=== PATIENT | male | born 1965 | race African-American/Black ===

== ENCOUNTER 2017-01-05 00:01 | Emergency (ER) | payer MEDICAID ==
[~2017-01-05] VITALS: Ht 177.8 cm; Wt 96.4 kg
[2017-01-05] MEDS ORDERED: methylPREDNISolone SOD SUCC 125 MG/2 ML ONE (00:44)
[2017-01-05] MEDS: methylPREDNISolone SOD SUCC 125 MG/2 ML IVP ONE ×2 (00:59→01:00)
[2017-01-05] MEDS: SODIUM CHLORIDE 0.9% 1,000ML IVBOLUS ONE ×2 (00:59→01:00)
[2017-01-05 01:04] LABS: HEMOGLOBIN 14.1 g/dL (13.7-18.0)
[2017-01-05 01:13] LABS: BLOOD UREA NITROGEN 13 mg/dL (7-18)
[2017-01-05 01:20] LABS: IS PT STATUS REG ER OR PRE ER? YES
[2017-01-05 01:47] LABS: DAU SCREEN DISCLAIMER
[2017-01-05 02:34] VITALS: BP 161/98
== END 2017-01-05 02:37 | disposition home or self-care (01) ==
LOC: ED 00:50
DX: L03.113 Cellulitis of right upper limb (principal); L03.114 Cellulitis of left upper limb; R05 Cough; I10 Essential (primary) hypertension; F15.10 Other stimulant abuse, uncomplicated; F15.129 Other stimulant abuse with intoxication, unspecified; E11.9 Type 2 diabetes mellitus without complications
CPT/HCPCS: 36415; 71010; 80048; 80307; 81003; 82040; 84484; 85025; 93005; 94640; 99285; J7512; J2930; J7030

== ENCOUNTER 2017-03-04 03:41 | Inpatient (IN) | payer MEDICAID ==
[~2017-03-04] VITALS: Ht 177.8 cm; Wt 96.7 kg
[2017-03-04] MEDS ORDERED: AMPICILLIN/SULBACTAM 3 GM in SODIUM CHLORIDE 0.9% 100 ML IV ONE (05:00)
[2017-03-04 05:02] LABS: BLOOD UREA NITROGEN 11 mg/dL (7-18)
[2017-03-04 05:07] LABS: ASPARTATE AMINO TRANSFERASE 25 U/L (15-37)
[2017-03-04] MEDS ORDERED: LIDOCAINE 1%, 20ML ONE (05:20)
[2017-03-04] MEDS ORDERED: KETOROLAC 30 MG/1 ML IVPush ONE (05:30)
[2017-03-04] MEDS ORDERED: SODIUM CHLORIDE 0.9% 1,000ML IVBOLUS ONE (05:30)
[2017-03-04] MEDS ORDERED: KETOROLAC 30 MG/1 ML ONE (06:45)
[2017-03-04 07:52] VITALS: BP 155/99
[2017-03-04] MEDS ORDERED: POLYETHYLENE GLYCOL 17 GM PACKET PO PRN (09:30)
[2017-03-04] MEDS ORDERED: VANCOMYCIN PER PHARMACY MC PRN (09:30)
[2017-03-04] MEDS ORDERED: ENOXAPARIN 40 MG/0.4 ML SQ SCH (09:30)
[2017-03-04] MEDS ORDERED: DOCUSATE 100 MG CAPSULE PO PRN (09:30)
[2017-03-04] MEDS ORDERED: BISACODYL 10 MG SUPP PR PRN (09:30)
[2017-03-04] MEDS ORDERED: VANCOMYCIN 1,900 MG in SODIUM CHLORIDE 0.9% 250 ML IV SCH (10:00)
[2017-03-04] MEDS ORDERED: PHARMACOKINETIC MONITORING MC PRN (10:00)
[2017-03-04] MEDS: SODIUM CHLORIDE 0.9% 1,000 ML IV SCH ×2 (10:34→21:54)
[2017-03-04] MEDS: AMPICILLIN/SULBACTAM 3 GM in SODIUM CHLORIDE 0.9% 100 ML IV SCH ×2 (10:34→17:36)
[2017-03-04] MEDS ORDERED: LORazepam 2 MG/ML, 1ML IVPush ONE (12:30)
[2017-03-04 14:26] VITALS: BP 155/99
[2017-03-04 14:46] VITALS: BP 177/107
[2017-03-04] MEDS ORDERED: LABETALOL 5MG/ML, 20ML IVPush PRN (15:00)
[2017-03-04 15:42] VITALS: BP 141/78
[2017-03-04 19:40] VITALS: BP 133/73
[2017-03-05 00:49] VITALS: BP 137/74
[2017-03-05] MEDS: AMPICILLIN/SULBACTAM 3 GM in SODIUM CHLORIDE 0.9% 100 ML IV SCH (02:02)
== END 2017-03-05 03:50 | disposition left against medical advice (07) | DRG 872 ==
LOC: ED 05:15 → EDIP 06:11 → 4EST 07:35
PROVIDERS: ADMIT Hospitalist; ATTEND Hospitalist
PROC: 0Y9H3ZZ Drainage of Right Lower Leg, Percutaneous Approach (ICD-10-PCS; principal; 2017-03-04)
DX: A41.9 Sepsis, unspecified organism (principal); L03.115 Cellulitis of right lower limb; L02.415 Cutaneous abscess of right lower limb; E11.9 Type 2 diabetes mellitus without complications; E78.5 Hyperlipidemia, unspecified; J45.909 Unspecified asthma, uncomplicated; I10 Essential (primary) hypertension; Z66 Do not resuscitate; F17.210 Nicotine dependence, cigarettes, uncomplicated; Z53.21 Procedure and treatment not carried out due to patient leaving prior to being seen by health care provider; F11.10 Opioid abuse, uncomplicated; F15.10 Other stimulant abuse, uncomplicated; Z91.14 Patient's other noncompliance with medication regimen; Z80.9 Family history of malignant neoplasm, unspecified
CPT/HCPCS: 36415; 80053; 83605; 84145; 85025; 85610; 85730; 87040; 87070; 87075; 87077; 87186; 87205; 96374; 96375; J0295; J1650; J1885; J3370; J2060; J7030; J7050

== ENCOUNTER 2017-09-09 20:21 | Emergency (ER) | payer SELFPAY ==
[~2017-09-09] VITALS: Ht 177.8 cm; Wt 92.4 kg
[2017-09-09 20:25] VITALS: BP 147/91
[2017-09-09] MEDS ORDERED: PROPARACAINE OPHTH 0.5%, 15ML EACHEYE ONE (21:00)
[2017-09-09] MEDS ORDERED: FLUORESCEIN OPHTHALMIC 1 MG STRIP ONE (21:21)
[2017-09-09] MEDS ORDERED: PROPARACAINE OPHTH 0.5%, 15ML ONE (21:21)
== END 2017-09-09 22:26 | disposition home or self-care (01) ==
LOC: ED 22:15
DX: H10.023 Other mucopurulent conjunctivitis, bilateral (principal); F15.10 Other stimulant abuse, uncomplicated; I10 Essential (primary) hypertension; E11.9 Type 2 diabetes mellitus without complications
CPT/HCPCS: 99283

== ENCOUNTER 2018-02-12 13:11 | Emergency (ER) | payer MEDICAID ==
[~2018-02-12] VITALS: Ht 177.8 cm; Wt 87.8 kg
[~2018-02-12 13:11] MED LIST: LISI30TA4 PO
[2018-02-12 13:13] VITALS: BP 175/96
[2018-02-12] MEDS ORDERED: FLUORESCEIN OPHTHALMIC 1 MG STRIP EACHEYE ONE (14:00)
[2018-02-12] MEDS ORDERED: PROPARACAINE OPHTH 0.5%, 15ML EACHEYE ONE (14:00)
[2018-02-12] MEDS ORDERED: PROPARACAINE OPHTH 0.5%, 15ML ONE (14:10)
[2018-02-12] MEDS ORDERED: FLUORESCEIN OPHTHALMIC 1 MG STRIP ONE (14:12)
[2018-02-12] MEDS ORDERED: ERYTHROMYCIN OPHTH 0.5%, 1GM EACHEYE ONE (14:30)
== END 2018-02-12 15:26 | disposition home or self-care (01) ==
LOC: ED 15:20
DX: H10.023 Other mucopurulent conjunctivitis, bilateral (principal); H10.11 Acute atopic conjunctivitis, right eye; E11.9 Type 2 diabetes mellitus without complications; I10 Essential (primary) hypertension
CPT/HCPCS: 99283

== ENCOUNTER 2018-04-30 03:38 | Emergency (ER) | payer SELFPAY ==
[~2018-04-30] VITALS: Ht 177.8 cm; Wt 89.0 kg
[2018-04-30] MEDS ORDERED: PROPARACAINE OPHTH 0.5%, 15ML ONE ×2 (04:54→04:56)
[2018-04-30] MEDS ORDERED: PROPARACAINE OPHTH 0.5%, 15ML EACHEYE ONE (05:00)
[2018-04-30 06:01] LABS: BASOPHILS # (AUTO) 0.01 x10^3/uL (0-0.1); BASOPHILS % (AUTO) 0 % (0-1); EOSINOPHILS # (AUTO) 0.18 x10^3/uL (0-0.4); EOSINOPHILS % (AUTO) 3 % (1-7); LYMPHOCYTES # (AUTO) 1.18 x10^3/uL (1-3.4); LYMPHOCYTES % (AUTO) 17 % (22-44); MD NO; MEAN CORPUSCULAR HEMOGLOBIN 31.5 pg (27.5-34.5); MEAN CORPUSCULAR HGB CONC 33.5 g/dL (33.2-36.2); MEAN CORPUSCULAR VOLUME 93.8 fL (81-97); MEAN PLATELET VOLUME 12.3 fL (7.4-10.4); MONOCYTES # (AUTO) 0.52 x10^3/uL (0.2-0.8); MONOCYTES % (AUTO) 7 % (2-9); NEUTROPHILS # (AUTO) 5.04 x10^3/uL (1.8-6.8); NEUTROPHILS % (AUTO) 73 % (42-75); PLATELET COUNT 124 x10^3/uL (130-400); RED BLOOD COUNT 4.41 x10^6/uL (4.38-5.82); RED CELL DISTRIBUTION WIDTH 13.7 % (9.4-14.8)
[2018-04-30 06:14] LABS: CALCIUM 8.6 mg/dL (8.5-10.1)
[2018-04-30 06:22] LABS: CHLORIDE 107 mmol/L (98-107)
[2018-04-30 06:23] LABS: ALANINE AMINOTRANSFERASE 33 U/L (12-78); ALBUMIN 3.3 g/dL (3.4-5.0); ALKALINE PHOSPHATASE 80 U/L (45-117); ANION GAP 8 mmol/L (5-15); BILIRUBIN,TOTAL 0.4 mg/dL (0.2-1.0); CREATININE 1.08 mg/dL (0.7-1.3); TOTAL PROTEIN 8.3 g/dL (6.4-8.2)
[2018-04-30] MEDS ORDERED: ACETAMINOPHEN 500 MG TABLET ONE (09:23)
[2018-04-30] MEDS ORDERED: ACETAMINOPHEN 500 MG TABLET PO ONE (09:30)
[2018-04-30] MEDS ORDERED: LISINOPRIL 20 MG TABLET ONE (12:57)
[2018-04-30] MEDS ORDERED: ACYCLOVIR 200 MG CAPSULE PO ONE (13:00)
[2018-04-30] MEDS ORDERED: LISINOPRIL 20 MG TABLET PO ONE (13:00)
[2018-04-30] MEDS ORDERED: ACYCLOVIR 400 MG TABLET PO ONE (14:00)
[2018-04-30 14:01] VITALS: BP 179/141
== END 2018-04-30 14:02 | disposition home or self-care (01) ==
LOC: ED 10:24
DX: H57.13 Ocular pain, bilateral (principal); B00.52 Herpesviral keratitis; R60.1 Generalized edema; I10 Essential (primary) hypertension; E11.9 Type 2 diabetes mellitus without complications
CPT/HCPCS: 36415; 71045; 80053; 83880; 85025; 93005; 99285

== ENCOUNTER 2018-08-03 04:36 | Observation (INO) | payer MEDICAID ==
[~2018-08-03] VITALS: Ht 180.3 cm; Wt 95.0 kg
[2018-08-03] MEDS ORDERED: PROPARACAINE OPHTH 0.5%, 15ML EACHEYE ONE (05:30)
[2018-08-03] MEDS ORDERED: KETOROLAC 30 MG/1 ML IVPush ONE (05:30)
[2018-08-03] MEDS ORDERED: KETOROLAC 30 MG/1 ML ONE (05:39)
[2018-08-03 05:51] LABS: BASOPHILS # (AUTO) 0.07 x10^3/uL (0-0.1); BASOPHILS % (AUTO) 1 % (0-1); EOSINOPHILS # (AUTO) 0.09 x10^3/uL (0-0.4); EOSINOPHILS % (AUTO) 1 % (1-7); LYMPHOCYTES # (AUTO) 0.81 x10^3/uL (1-3.4); LYMPHOCYTES % (AUTO) 8 % (22-44); MD NO; MEAN CORPUSCULAR HEMOGLOBIN 32.1 pg (27.5-34.5); MEAN CORPUSCULAR HGB CONC 33.8 g/dL (33.2-36.2); MEAN CORPUSCULAR VOLUME 94.8 fL (81-97); MEAN PLATELET VOLUME 11.4 fL (7.4-10.4); MONOCYTES % (AUTO) 4 % (2-9); NEUTROPHILS # (AUTO) 8.91 x10^3/uL (1.8-6.8); NEUTROPHILS % (AUTO) 87 % (42-75); PLATELET COUNT 170 x10^3/uL (130-400); RED BLOOD COUNT 4.45 x10^6/uL (4.38-5.82); RED CELL DISTRIBUTION WIDTH 14.4 % (9.4-14.8)
[2018-08-03 06:00] LABS: ALBUMIN 3.8 g/dL (3.4-5.0); ANION GAP 9 mmol/L (5-15); CALCIUM 8.7 mg/dL (8.5-10.1); CHLORIDE 99 mmol/L (98-107); CREATININE 1.19 mg/dL (0.7-1.3)
[2018-08-03] MEDS ORDERED: KETOROLAC 30 MG/1 ML IM ONE (06:00)
[2018-08-03] MEDS ORDERED: hydrALAzine 20 MG/ML, 1ML IV ONE (09:00)
[2018-08-03] MEDS ORDERED: ASPIRIN 81 MG TABLET CHEW PO ONE (09:00)
[2018-08-03] MEDS ORDERED: ERYTHROMYCIN OPHTH 0.5%, 1GM EACHEYE ONE (09:00)
[2018-08-03] MEDS ORDERED: SODIUM CHLORIDE FLUSH 10ML SYR IVF ONE (09:00)
[2018-08-03] MEDS ORDERED: CYCL2DRO3 TP (09:16)
[2018-08-03] MEDS ORDERED: hydrALAzine 20 MG/ML, 1ML ONE (09:19)
[2018-08-03] MEDS ORDERED: ASPIRIN 81 MG TABLET CHEW ONE (09:19)
[2018-08-03] MEDS ORDERED: PRED5DRO20 EACHEYE (09:20)
[2018-08-03 10:17] VITALS: BP 149/74
[2018-08-03] MEDS: D5%-0.45% NACL 1,000 ML IV SCH ×2 (10:48→22:48)
[2018-08-03] MEDS ORDERED: LABETALOL 5MG/ML, 20ML IVPush PRN (11:00)
[2018-08-03] MEDS ORDERED: POLYETHYLENE GLYCOL 17 GM PACKET PO PRN (11:00)
[2018-08-03] MEDS: INSULIN LISPRO 100 UNITS/ML, PEN SQ-INSULIN SCH ×3 (11:00→19:34)
[2018-08-03] MEDS ORDERED: GLUCAGON 1 MG IM PRN (11:00)
[2018-08-03] MEDS: OMEPRAZOLE 20 MG CAPSULE.DR PO SCH (11:00)
[2018-08-03] MEDS ORDERED: DEXTROSE 50%, 50ML SYRINGE IVPush PRN (11:00)
[2018-08-03] MEDS ORDERED: ONDANSETRON ODT 4 MG PO PRN (11:00)
[2018-08-03] MEDS ORDERED: DEXTROSE 4 GM TAB.CHEW PO PRN (11:00)
[2018-08-03] MEDS ORDERED: ONDANSETRON 2MG/ML, 2ML IVPush PRN (11:00)
[2018-08-03] MEDS: methylPREDNISolone SOD SUCC 125 MG/2 ML IVPush SCH ×3 (11:27→23:17)
[2018-08-03] MEDS: predniSOLONE OPHTH SUSP 1%, 5ML OP SCH ×7 (11:27→23:17)
[2018-08-03] MEDS: ERYTHROMYCIN OPHTH 0.5%, 1GM OP SCH ×3 (12:23→21:07)
[2018-08-03] MEDS: CYCLOPENTOLATE OPHTH SOLN 1%, 15ML OP SCH ×3 (12:23→21:06)
[2018-08-03 12:48] LABS: AMPHETAMINE SCREEN, URINE Positive (Negative); BARBITURATE SCREEN, URINE Negative (Negative); BENZODIAZEPINE SCREEN, URINE Negative (Negative); CANNABINOID SCREEN, URINE Positive (Negative); COCAINE SCREEN, URINE Negative (Negative); METHADONE SCREEN, URINE Negative (Negative); OPIATE SCREEN, URINE Positive (Negative)
[2018-08-03 14:46] VITALS: BP 165/95
[2018-08-03 19:58] VITALS: BP 172/110
[2018-08-03] MEDS ORDERED: SODIUM CHLORIDE FLUSH 10ML SYR IVF SCH (21:00)
[2018-08-03] MEDS ORDERED: IBUPROFEN 600 MG TABLET ONE (21:48)
[2018-08-03] MEDS ORDERED: LORazepam 1MG TABLET ONE (21:48)
[2018-08-03] MEDS: IBUPROFEN 600 MG TABLET PO PRN (21:51)
[2018-08-03 21:54] VITALS: BP 174/107
[2018-08-03] MEDS ORDERED: LORazepam 1MG TABLET PO ONE (22:00)
[2018-08-03 22:49] VITALS: BP 154/100
[2018-08-04 00:40] VITALS: BP 154/95
[2018-08-04] MEDS: predniSOLONE OPHTH SUSP 1%, 5ML OP SCH ×3 (01:17→05:30)
[2018-08-04] MEDS: IBUPROFEN 600 MG TABLET PO PRN (04:33)
[2018-08-04] MEDS: ERYTHROMYCIN OPHTH 0.5%, 1GM OP SCH (05:30)
[2018-08-04] MEDS: OMEPRAZOLE 20 MG CAPSULE.DR PO SCH (05:30)
[2018-08-04] MEDS: CYCLOPENTOLATE OPHTH SOLN 1%, 15ML OP SCH (05:30)
[2018-08-04] MEDS: methylPREDNISolone SOD SUCC 125 MG/2 ML IVPush SCH (05:30)
[2018-08-04 06:35] LABS: BASOPHILS # (AUTO) 0.01 x10^3/uL (0-0.1); BASOPHILS % (AUTO) 0 % (0-1); EOSINOPHILS % (AUTO) 0 % (1-7); LYMPHOCYTES # (AUTO) 0.69 x10^3/uL (1-3.4); LYMPHOCYTES % (AUTO) 6 % (22-44); MD NO; MEAN CORPUSCULAR HEMOGLOBIN 31.9 pg (27.5-34.5); MEAN CORPUSCULAR VOLUME 93.9 fL (81-97); MEAN PLATELET VOLUME 11.2 fL (7.4-10.4); MONOCYTES # (AUTO) 0.25 x10^3/uL (0.2-0.8); MONOCYTES % (AUTO) 2 % (2-9); NEUTROPHILS # (AUTO) 11.27 x10^3/uL (1.8-6.8); NEUTROPHILS % (AUTO) 92 % (42-75); PLATELET COUNT 187 x10^3/uL (130-400); RED BLOOD COUNT 4.65 x10^6/uL (4.38-5.82); RED CELL DISTRIBUTION WIDTH 14.1 % (9.4-14.8)
[2018-08-04 06:47] LABS: ALANINE AMINOTRANSFERASE 27 U/L (12-78); ALBUMIN 3.4 g/dL (3.4-5.0); ANION GAP 11 mmol/L (5-15); CALCIUM 8.8 mg/dL (8.5-10.1); CHLORIDE 102 mmol/L (98-107); CREATININE 1.12 mg/dL (0.7-1.3)
[2018-08-04 06:58] LABS: ALKALINE PHOSPHATASE 92 U/L (45-117); BILIRUBIN,TOTAL 0.8 mg/dL (0.2-1.0); THYROID STIMULATING HORMONE 0.163 mIU/L (0.358-3.740); TOTAL PROTEIN 9.5 g/dL (6.4-8.2)
[2018-08-04] MEDS ORDERED: AMLODIPINE 5 MG TABLET PO SCH (09:00)
[2018-08-04] MEDS ORDERED: SENNA/DOCUSATE TABLET PO SCH (09:00)
== END 2018-08-04 07:07 | disposition left against medical advice (07) ==
LOC: ED 05:56 → INTOOBSV 09:24 → 4WST 09:24
PROVIDERS: ADMIT Family Medicine; ATTEND Family Medicine
DX: I10 Essential (primary) hypertension (principal); F12.10 Cannabis abuse, uncomplicated; F15.10 Other stimulant abuse, uncomplicated; E11.9 Type 2 diabetes mellitus without complications; E87.1 Hypo-osmolality and hyponatremia; D72.829 Elevated white blood cell count, unspecified; E78.5 Hyperlipidemia, unspecified; J45.909 Unspecified asthma, uncomplicated; F17.200 Nicotine dependence, unspecified, uncomplicated; Z91.19 Patient's noncompliance with other medical treatment and regimen; Z79.899 Other long term (current) drug therapy
CPT/HCPCS: 36415; 71045; 80048; 80053; 80307; 82040; 82962; 83036; 83735; 84100; 84439; 84443; 85025; 93005; 96372; 96374; 96375; 96376; 99291; G0378; J0360; J1815; J1885; J2930

== ENCOUNTER 2018-08-06 20:59 | Emergency (ER) | payer MEDICAID ==
[~2018-08-06] VITALS: Ht 177.8 cm; Wt 90.9 kg
[~2018-08-06 20:59] MED LIST changes: +CYCL2DRO3 TP; +PRED5DRO20 EACHEYE
[2018-08-06 21:06] VITALS: BP 181/106
[2018-08-06] MEDS ORDERED: TETRACAINE 0.5% EACHEYE ONE (22:00)
== END 2018-08-06 22:38 | disposition home or self-care (01) ==
LOC: ED 22:35
DX: H16.011 Central corneal ulcer, right eye (principal); H57.13 Ocular pain, bilateral; I10 Essential (primary) hypertension; F17.200 Nicotine dependence, unspecified, uncomplicated
CPT/HCPCS: 99283

== ENCOUNTER 2018-12-20 03:41 | Emergency (ER) | payer MEDICAID ==
[~2018-12-20] VITALS: Ht 177.8 cm; Wt 96.4 kg
--- NOTE | 2018-12-20 04:05 | NUR ---
FIRST CONTACT WITH PT. PT C/O MOUTH PAIN X 2 DAYS. PT DENIES ANY OTHER S/S AT THIS TIME. PT'S AOX4. RESPS EVEN AND UNLABORED. BP/SPO2 MONITORS IN PLACE. CALL LIGHT WITHIN REACH. PA AT BEDSIDE TO ASSESS AT THIS TIME.
[2018-12-20] MEDS ORDERED: FLUCONAZOLE 100 MG TABLET ONE (04:26)
[2018-12-20] MEDS ORDERED: FLUCONAZOLE 100 MG TABLET PO ONE (04:30)
--- NOTE | 2018-12-20 04:31 | NUR ---
PT MEDICATED PER EMAR. PT TOLERATED WELL. PT'S AOX4. RESPS EVEN AND UNLABORED.
[2018-12-20 05:02] LABS: ALANINE AMINOTRANSFERASE 34 U/L (12-78); ALBUMIN 3.4 g/dL (3.4-5.0); ANION GAP 5 mmol/L (5-15); CALCIUM 8.6 mg/dL (8.5-10.1); CHLORIDE 105 mmol/L (98-107); CREATININE 1.38 mg/dL (0.7-1.3)
[2018-12-20 05:05] LABS: ALKALINE PHOSPHATASE 84 U/L (45-117); BILIRUBIN,TOTAL 0.7 mg/dL (0.2-1.0); TOTAL PROTEIN 8.2 g/dL (6.4-8.2)
[2018-12-20 05:40] LABS: BASOPHILS # (AUTO) 0.02 x10^3/uL (0-0.1); BASOPHILS % (AUTO) 0 % (0-1); EOSINOPHILS # (AUTO) 0.18 x10^3/uL (0-0.4); EOSINOPHILS % (AUTO) 3 % (1-7); LYMPHOCYTES # (AUTO) 0.95 x10^3/uL (1-3.4); LYMPHOCYTES % (AUTO) 16 % (22-44); MD SCAN; MEAN CORPUSCULAR HEMOGLOBIN 30.4 pg (27.5-34.5); MEAN CORPUSCULAR HGB CONC 32.4 g/dL (33.2-36.2); MEAN CORPUSCULAR VOLUME 93.9 fL (81-97); MEAN PLATELET VOLUME 12.1 fL (7.4-10.4); MONOCYTES # (AUTO) 0.52 x10^3/uL (0.2-0.8); MONOCYTES % (AUTO) 9 % (2-9); NEUTROPHILS # (AUTO) 4.37 x10^3/uL (1.8-6.8); NEUTROPHILS % (AUTO) 72 % (42-75); PLATELET COUNT 157 x10^3/uL (130-400); RED BLOOD COUNT 4.24 x10^6/uL (4.38-5.82); RED CELL DISTRIBUTION WIDTH 14.3 % (9.4-14.8)
--- NOTE | 2018-12-20 05:48 | NUR ---
PT RESTING IN [facility]. PT'S AOX4. RESPS EVEN AND UNLABORED. BP/SPO2 MONITORS IN PLACE.
[2018-12-20] MEDS ORDERED: NYSTATIN 500,000 UNITS/5 ML UDC PO ONE (06:30)
[2018-12-20 06:47] VITALS: BP 152/94
--- NOTE | 2018-12-20 06:56 | NUR ---
PT MEDICATED PER EMAR. PT TOLERATED WELL. PT'S AOX4. RESPS EVEN AND UNLABORED.
--- NOTE | 2018-12-20 06:57 | NUR ---
RECEIVED REPORT FROM LUCILLE HUERTA, PLAN OF CARE DISCUSSED.
--- NOTE | 2018-12-20 06:57 | NUR ---
REPORT GIVEN TO VIVIAN HUERTA.
--- NOTE | 2018-12-20 07:10 | NUR ---
CARE FOR DC PROVIDED. PT LAYING ON GURNEY, NO ACUTE DISTRESS NOTED. NO IV TO DC. REVIEWED DC INSTRUCTIONS WITH PT. UNDERSTANDING VERBALIZED.
== END 2018-12-20 07:12 | disposition home or self-care (01) ==
LOC: ED 05:11
DX: B37.9 Candidiasis, unspecified (principal); F17.210 Nicotine dependence, cigarettes, uncomplicated; I10 Essential (primary) hypertension; E11.9 Type 2 diabetes mellitus without complications
CPT/HCPCS: 80053; 82962; 85025; 87806; 99283; G0475

== ENCOUNTER 2019-09-29 19:36 | Inpatient (IN) | payer MEDICAID ==
[~2019-09-29] VITALS: Ht 177.8 cm; Wt 96.6 kg
--- NOTE | 2019-09-29 20:02 | NUR ---
ZOLTAN JOHNSON AT BEDSIDE FOR EVAL. PT PRESENTS WITH SWELLING AND SKIN TIGHTNESS TO RIGHT ARM AND HAND. MULTIPLE BLISTERS ON RIGHT ARM. PT STATES HE "SHOT UP METH TODAY" IN RIGHT HAND.
[2019-09-29] MEDS ORDERED: ACETAMINOPHEN 325 MG TABLET ONE (20:27)
[2019-09-29] MEDS ORDERED: PIPERACILLIN/TAZO/PMX 3.375GM 50 ML ONE (20:27)
[2019-09-29] MEDS ORDERED: SODIUM CHLORIDE 0.9% 1,000ML IVBOLUS ONE (20:30)
[2019-09-29] MEDS ORDERED: PIPERACILLIN/TAZO/PMX 3.375GM 50 ML IV ONE (20:30)
[2019-09-29] MEDS ORDERED: VANCOMYCIN PER PHARMACY MC PRN ×2 (20:30→23:30)
[2019-09-29] MEDS ORDERED: VANCOMYCIN 2,000 MG in SODIUM CHLORIDE 0.9% 500 ML IV ONE (20:30)
[2019-09-29] MEDS ORDERED: SODIUM CHLORIDE FLUSH 10ML SYR IVF ONE (20:30)
[2019-09-29] MEDS ORDERED: ACETAMINOPHEN 325 MG TABLET PO ONE (20:30)
[2019-09-29 20:43] LABS: MEAN CORPUSCULAR HEMOGLOBIN 32.6 pg (27.5-34.5); MEAN CORPUSCULAR VOLUME 98.7 fL (81-97); PLATELET COUNT 168 x10^3/uL (130-400); RED BLOOD COUNT 3.86 x10^6/uL (4.38-5.82); RED CELL DISTRIBUTION WIDTH 14.6 % (9.4-14.8)
[2019-09-29 20:50] LABS: ALANINE AMINOTRANSFERASE 17 U/L (12-78); ALBUMIN 2.3 g/dL (3.4-5.0); ANION GAP 5 mmol/L (5-15); CALCIUM 7.8 mg/dL (8.5-10.1); CHLORIDE 105 mmol/L (98-107)
[2019-09-29 20:52] LABS: ALKALINE PHOSPHATASE 96 U/L (45-117); BILIRUBIN,TOTAL 0.9 mg/dL (0.2-1.0); TOTAL PROTEIN 7.5 g/dL (6.4-8.2)
[2019-09-29] MEDS ORDERED: ALBUTEROL SULFATE 2.5 MG/3 ML NPPB ONE (21:00)
[2019-09-29] MEDS ORDERED: ALBUTEROL/IPRATROPIUM 2.5MG/0.5MG, 3 ML NPPB ONE (21:00)
[2019-09-29 21:03] LABS: MD YES
[2019-09-29 21:06] LABS: BAND#(MANUAL) 3.83 x10^3/uL; BANDS%(MANUAL) 17 % (0-7); LYMPH#(MANUAL) 0.23 x10^3/uL (1-3.4); LYMPHS% (MANUAL) 1 % (22-44); MONOS#(MANUAL) 0.68 x10^3/uL (0.3-2.7); MONOS% (MANUAL) 3 % (2-9); SEG#(MANUAL) 17.78 x10^3/uL (1.8-6.8); SEGS% (MANUAL) 79 % (42-75)
--- NOTE | 2019-09-29 21:06 | NUR ---
ALEXEY RN: ATTEMPTED FOR US IV. PT WITH VERY POOR AND COMPLEX VASCULATURE. MULTIPLE PERIPHERAL ATTEMPTS MADE UNSUCCESSFULLY. IV WAS ABLE TO BE PLACED IN LEFT WRIST AND SECOND SET OF BLOOD CULTURE WAS DRAWN. EXTREME MEASURES WERE MADE TO KEEP BLOOD DRAW STERILE BUT DUE TO PTS CRITICAL NATURE AND COMPLEXITY/DIFFICULTY OF IV ACCESS THIS WAS DIFFULT TO ACCOMPLISH.
[2019-09-29 21:07] LABS: <PLATELET ESTIMATE> ADEQUATE; ANISOCYTOSIS 1+; LARGE PLATELETS 1+
--- NOTE | 2019-09-29 21:21 | NUR ---
BLOOD CULTURES DRAWN X2, IV ABX INFUSING AT THIS TIME.
--- NOTE | 2019-09-29 22:03 | NUR ---
PT TO CT WITH TECH AT THIS TIME. ROOM SET UP FOR CENTRAL LINE PLACEDMENT BY DR. JOHNSON.
--- NOTE | 2019-09-29 22:26 | NUR ---
CONSENT OBTAINED AND ROOM SET UP FOR CENTRAL LINE PLACEMENT. AWAITING ERMD.
--- NOTE | 2019-09-29 22:26 | NUR ---
LATE ENTRY: DURING IV ATTEMPTS IT WAS NOTED PT HAD MULTIPLE CLOTTED VEINS WELL ABNORMAL APPEARING BLOOD CLOTS WITH BLOOD DRAWS. THIS WAS RELAYED TO . COAGS ORDERED BY .
[2019-09-29] MEDS ORDERED: OMNIPAQUE 350 MG/ML, 150 ML BOTTLE ONE (22:33)
[2019-09-29] MEDS ORDERED: methylPREDNISolone SOD SUCC 125 MG/2 ML IVPush ONE (23:00)
--- NOTE | 2019-09-29 23:00 | NUR ---
PT TO BE ADMITTED, AWAITING BED AT THIS TIME.
--- NOTE | 2019-09-29 23:00 | NUR ---
REPORT RECEIEVED FROM BRADLEY SANTOS. ASSUMED CARE OF PT
[2019-09-29 23:03] LABS: INTERNATIONAL NORMALIZED RATIO 1.05 (0.93-1.1)
--- NOTE | 2019-09-29 23:28 | NUR ---
DR. JOHNSON AND DR. RDZ AT BEDSIDE.
[2019-09-29] MEDS ORDERED: ACETAMINOPHEN 325 MG TABLET PO PRN (23:30)
[2019-09-29] MEDS ORDERED: ONDANSETRON ODT 4 MG PO PRN (23:30)
[2019-09-29] MEDS ORDERED: BISACODYL 10 MG SUPP PR PRN (23:30)
--- NOTE | 2019-09-29 23:48 | NUR ---
REPORT GIVEN TO MACK HUERTA. DISCUSSED BANDAGING PT'S ARM. HE STATES HE WILL DO IT WHEN HE GETS TO THE FLOOR SO HE CAN VISUALIZE THE OPEN WOUNDS.
[2019-09-30 00:30] VITALS: BP 134/83
[2019-09-30] MEDS ORDERED: PHARMACOKINETIC MONITORING MC PRN (01:00)
[2019-09-30] MEDS: HEPARIN 5,000 UNITS/ML, 1ML SQ SCH ×3 (01:18→17:19)
[2019-09-30] MEDS: morphine SULFATE 10 MG/ML, 1ML IVPush PRN ×2 (01:19→04:53)
[2019-09-30] MEDS: SODIUM CHLORIDE 0.9% 1,000 ML IV SCH ×3 (01:20→19:45)
[2019-09-30] MEDS ORDERED: PIPERACILLIN/TAZO/PMX 3.375GM 50 ML IV SCH (03:30)
[2019-09-30 04:29] LABS: AMPHETAMINE SCREEN, URINE Positive (Negative); BARBITURATE SCREEN, URINE Negative (Negative); BENZODIAZEPINE SCREEN, URINE Negative (Negative); CANNABINOID SCREEN, URINE Positive (Negative); COCAINE SCREEN, URINE Negative (Negative); METHADONE SCREEN, URINE Negative (Negative); MICROSCOPIC INDICATED; OPIATE SCREEN, URINE Positive (Negative)
[2019-09-30 04:49] LABS: CULTURE INDICATED? NO
[2019-09-30 05:13] LABS: MEAN CORPUSCULAR HEMOGLOBIN 32.5 pg (27.5-34.5); MEAN CORPUSCULAR HGB CONC 33.2 g/dL (33.2-36.2); MEAN CORPUSCULAR VOLUME 97.8 fL (81-97); RED BLOOD COUNT 3.99 x10^6/uL (4.38-5.82); RED CELL DISTRIBUTION WIDTH 14.8 % (9.4-14.8)
[2019-09-30 05:14] LABS: ALBUMIN 2.2 g/dL (3.4-5.0); ANION GAP 9 mmol/L (5-15); CALCIUM 7.8 mg/dL (8.5-10.1); CHLORIDE 108 mmol/L (98-107)
[2019-09-30 05:18] LABS: ALANINE AMINOTRANSFERASE 18 U/L (12-78); ALKALINE PHOSPHATASE 101 U/L (45-117); BILIRUBIN,TOTAL 1.2 mg/dL (0.2-1.0); CREATININE 1.63 mg/dL (0.7-1.3); TOTAL PROTEIN 7.4 g/dL (6.4-8.2)
[2019-09-30 06:02] LABS: MD YES; MEAN PLATELET VOLUME 11.2 fL (7.4-10.4); PLATELET COUNT 139 x10^3/uL (130-400)
[2019-09-30 06:03] LABS: BAND#(MANUAL) 5.96 x10^3/uL; BANDS%(MANUAL) 23 % (0-7); LYMPH#(MANUAL) 0.26 x10^3/uL (1-3.4); LYMPHS% (MANUAL) 1 % (22-44); MONOS#(MANUAL) 0.52 x10^3/uL (0.3-2.7); MONOS% (MANUAL) 2 % (2-9); SEG#(MANUAL) 19.17 x10^3/uL (1.8-6.8); SEGS% (MANUAL) 74 % (42-75)
[2019-09-30 06:04] LABS: <PLATELET ESTIMATE> ADEQUATE; LARGE PLATELETS 1+
[2019-09-30 06:52] VITALS: BP 142/86
[2019-09-30] MEDS: AMPICILLIN/SULBACTAM 3 GM in SODIUM CHLORIDE 0.9% 100 ML IV SCH ×3 (10:25→22:35)
[2019-09-30] MEDS: CLINDAMYCIN PMX 900MG/50ML 50 ML IV SCH ×2 (11:29→19:45)
[2019-09-30 14:24] VITALS: BP 150/99
[2019-09-30] MEDS ORDERED: DEXTROSE 50%, 50ML SYRINGE IVPush PRN (17:00)
[2019-09-30] MEDS ORDERED: OXYcodone IR 5MG TABLET PO PRN (17:00)
[2019-09-30] MEDS ORDERED: GLUCAGON 1 MG IM PRN (17:00)
[2019-09-30] MEDS ORDERED: DEXTROSE 4 GM TAB.CHEW PO PRN (17:00)
[2019-09-30] MEDS: VANCOMYCIN 2,000 MG in SODIUM CHLORIDE 0.9% 500 ML IV SCH (17:03)
[2019-09-30 19:03] VITALS: BP 139/91
[2019-09-30] MEDS: SODIUM CHLORIDE FLUSH 10ML SYR IVF SCH (19:45)
[2019-10-01] MEDS ORDERED: METHADONE 5 MG TABLET PO ONE
[2019-10-01] MEDS: CLINDAMYCIN PMX 900MG/50ML 50 ML IV SCH ×3 (03:13→20:55)
[2019-10-01] MEDS: HEPARIN 5,000 UNITS/ML, 1ML SQ SCH ×4 (03:14→20:53)
[2019-10-01 03:17] VITALS: BP 131/83
[2019-10-01] MEDS: AMPICILLIN/SULBACTAM 3 GM in SODIUM CHLORIDE 0.9% 100 ML IV SCH ×3 (04:48→18:23)
[2019-10-01 07:13] VITALS: BP 135/74
[2019-10-01] MEDS: SODIUM CHLORIDE 0.9% 1,000 ML IV SCH ×2 (08:00→22:03)
[2019-10-01] MEDS: SODIUM CHLORIDE FLUSH 10ML SYR IVF SCH ×2 (09:06→22:01)
[2019-10-01 09:40] LABS: MEAN CORPUSCULAR HEMOGLOBIN 31.9 pg (27.5-34.5); MEAN CORPUSCULAR HGB CONC 32.3 g/dL (33.2-36.2); MEAN CORPUSCULAR VOLUME 98.7 fL (81-97); PLATELET COUNT 184 x10^3/uL (130-400); RED BLOOD COUNT 3.53 x10^6/uL (4.38-5.82); RED CELL DISTRIBUTION WIDTH 14.9 % (9.4-14.8)
[2019-10-01 09:43] LABS: ALBUMIN 1.7 g/dL (3.4-5.0); ANION GAP 4 mmol/L (5-15); CALCIUM 7.3 mg/dL (8.5-10.1); CHLORIDE 112 mmol/L (98-107)
[2019-10-01 09:47] LABS: ALANINE AMINOTRANSFERASE 13 U/L (12-78); ALKALINE PHOSPHATASE 93 U/L (45-117); BILIRUBIN,TOTAL 0.5 mg/dL (0.2-1.0); CREATININE 1.45 mg/dL (0.7-1.3); TOTAL PROTEIN 6.7 g/dL (6.4-8.2)
[2019-10-01 10:07] LABS: MD YES
[2019-10-01 10:16] LABS: BAND#(MANUAL) 4.51 x10^3/uL; BANDS%(MANUAL) 13 % (0-7); LYMPH#(MANUAL) 1.04 x10^3/uL (1-3.4); LYMPHS% (MANUAL) 3 % (22-44); MONOS#(MANUAL) 2.43 x10^3/uL (0.3-2.7); MONOS% (MANUAL) 7 % (2-9); SEG#(MANUAL) 26.72 x10^3/uL (1.8-6.8); SEGS% (MANUAL) 77 % (42-75)
[2019-10-01 10:17] LABS: <PLATELET ESTIMATE> ADEQUATE; LARGE PLATELETS 1+; PMNS WITH VACUOLES 1+; POLYCHROMASIA 1+
[2019-10-01] MEDS: VANCOMYCIN 2,000 MG in SODIUM CHLORIDE 0.9% 500 ML IV SCH (10:18)
[2019-10-01] MEDS: morphine SULFATE 10 MG/ML, 1ML IVPush PRN (15:37)
[2019-10-01 15:42] VITALS: BP 147/89
[2019-10-01] MEDS ORDERED: METHADONE 10 MG TABLET ONE (16:07)
[2019-10-01] MEDS: METHADONE 10 MG TABLET PO SCH (17:38)
[2019-10-01 19:54] VITALS: BP 147/84
[2019-10-01] MEDS: ALBUTEROL SULFATE 2.5 MG/3 ML NPPB PRN (20:15)
[2019-10-01] MEDS ORDERED: METH10TA2 PO (21:11)
[2019-10-01] MEDS: GUAIFENESIN ER 600 MG TABLET PO SCH (22:01)
[2019-10-02] MEDS: AMPICILLIN/SULBACTAM 3 GM in SODIUM CHLORIDE 0.9% 100 ML IV SCH ×4 (00:11→20:25)
[2019-10-02] MEDS: HEPARIN 5,000 UNITS/ML, 1ML SQ SCH ×3 (02:57→18:04)
[2019-10-02 03:08] VITALS: BP 134/78
[2019-10-02 03:33] LABS: ALANINE AMINOTRANSFERASE 27 U/L (12-78); ALBUMIN 1.7 g/dL (3.4-5.0); ANION GAP 5 mmol/L (5-15); CALCIUM 7.4 mg/dL (8.5-10.1); CHLORIDE 112 mmol/L (98-107); CREATININE 1.32 mg/dL (0.7-1.3)
[2019-10-02 03:35] LABS: MEAN CORPUSCULAR HEMOGLOBIN 32.1 pg (27.5-34.5); MEAN CORPUSCULAR HGB CONC 32.8 g/dL (33.2-36.2); MEAN CORPUSCULAR VOLUME 97.8 fL (81-97); MEAN PLATELET VOLUME 11.5 fL (7.4-10.4); PLATELET COUNT 199 x10^3/uL (130-400); RED BLOOD COUNT 3.46 x10^6/uL (4.38-5.82); RED CELL DISTRIBUTION WIDTH 15.1 % (9.4-14.8)
[2019-10-02] MEDS: ALBUTEROL SULFATE 2.5 MG/3 ML NPPB PRN (03:35)
[2019-10-02 03:36] LABS: ALKALINE PHOSPHATASE 90 U/L (45-117); BILIRUBIN,TOTAL 0.4 mg/dL (0.2-1.0); TOTAL PROTEIN 7.2 g/dL (6.4-8.2); VANCOMYCIN,TROUGH 11.7 mcg/mL (5.0-10.0)
[2019-10-02] MEDS: VANCOMYCIN 2,000 MG in SODIUM CHLORIDE 0.9% 500 ML IV SCH ×2 (03:46→22:19)
[2019-10-02 04:04] LABS: MD YES
[2019-10-02 04:07] LABS: BAND#(MANUAL) 1.02 x10^3/uL; BANDS%(MANUAL) 4 % (0-7); LYMPH#(MANUAL) 1.54 x10^3/uL (1-3.4); LYMPHS% (MANUAL) 6 % (22-44); SEG#(MANUAL) 23.04 x10^3/uL (1.8-6.8); SEGS% (MANUAL) 90 % (42-75)
[2019-10-02 04:08] LABS: ANISOCYTOSIS 1+; POLYCHROMASIA 1+
[2019-10-02 04:09] LABS: <PLATELET ESTIMATE> ADEQUATE; LARGE PLATELETS 1+; TOXIC GRAN 1+
[2019-10-02] MEDS: CLINDAMYCIN PMX 900MG/50ML 50 ML IV SCH ×3 (06:00→21:09)
[2019-10-02 07:45] VITALS: BP 139/78
[2019-10-02] MEDS: GUAIFENESIN ER 600 MG TABLET PO SCH ×2 (07:51→20:25)
[2019-10-02] MEDS: METHADONE 10 MG TABLET PO SCH ×2 (07:51→20:25)
[2019-10-02] MEDS: SODIUM CHLORIDE FLUSH 10ML SYR IVF SCH ×2 (09:00→20:28)
[2019-10-02] MEDS: SODIUM CHLORIDE 0.9% 1,000 ML IV SCH (10:14)
[2019-10-02 14:11] VITALS: BP 165/96
[2019-10-02 14:47] VITALS: BP 158/99
[2019-10-02 18:00] VITALS: BP 148/89
[2019-10-02] MEDS: SODIUM CHLORIDE 0.45% 1,000 ML IV SCH (18:04)
[2019-10-02] MEDS: AMLODIPINE 2.5 MG TABLET PO SCH (18:04)
[2019-10-02 20:23] VITALS: BP 172/84
[2019-10-03] MEDS: AMPICILLIN/SULBACTAM 3 GM in SODIUM CHLORIDE 0.9% 100 ML IV SCH ×5 (01:18→21:06)
[2019-10-03] MEDS: HEPARIN 5,000 UNITS/ML, 1ML SQ SCH ×3 (03:27→21:06)
[2019-10-03 03:31] VITALS: BP 138/80
[2019-10-03 03:57] LABS: MEAN CORPUSCULAR HEMOGLOBIN 31.6 pg (27.5-34.5); MEAN CORPUSCULAR HGB CONC 32.6 g/dL (33.2-36.2); MEAN PLATELET VOLUME 10.4 fL (7.4-10.4); PLATELET COUNT 224 x10^3/uL (130-400); RED BLOOD COUNT 3.63 x10^6/uL (4.38-5.82); RED CELL DISTRIBUTION WIDTH 14.9 % (9.4-14.8)
[2019-10-03 04:00] LABS: MD YES
[2019-10-03 04:09] LABS: ALANINE AMINOTRANSFERASE 58 U/L (12-78); ALBUMIN 1.7 g/dL (3.4-5.0); ANION GAP 6 mmol/L (5-15); CALCIUM 7.9 mg/dL (8.5-10.1); CHLORIDE 107 mmol/L (98-107)
[2019-10-03 04:11] LABS: ANISOCYTOSIS 1+; BAND#(MANUAL) 0.18 x10^3/uL; BANDS%(MANUAL) 1 % (0-7); EOS#(MANUAL) 0.18 x10^3/uL (0.0-0.4); EOS% (MANUAL) 1 % (1-7); LYMPHS% (MANUAL) 9 % (22-44); MONOS#(MANUAL) 0.71 x10^3/uL (0.3-2.7); MONOS% (MANUAL) 4 % (2-9); PMNS WITH VACUOLES 1+; POLYCHROMASIA 1+; SEG#(MANUAL) 15.13 x10^3/uL (1.8-6.8); SEGS% (MANUAL) 85 % (42-75)
[2019-10-03 04:12] LABS: <PLATELET ESTIMATE> ADEQUATE; ALKALINE PHOSPHATASE 112 U/L (45-117); BILIRUBIN,TOTAL 0.5 mg/dL (0.2-1.0); LARGE PLATELETS 1+; TOTAL PROTEIN 7.9 g/dL (6.4-8.2)
[2019-10-03] MEDS: CLINDAMYCIN PMX 900MG/50ML 50 ML IV SCH (06:36)
[2019-10-03] MEDS: SODIUM CHLORIDE 0.45% 1,000 ML IV SCH (06:37)
[2019-10-03 07:32] VITALS: BP 126/77
[2019-10-03] MEDS: METHADONE 10 MG TABLET PO SCH ×2 (08:17→21:06)
[2019-10-03] MEDS: GUAIFENESIN ER 600 MG TABLET PO SCH ×2 (08:17→21:06)
[2019-10-03] MEDS: AMLODIPINE 2.5 MG TABLET PO SCH (08:17)
[2019-10-03] MEDS: SODIUM CHLORIDE FLUSH 10ML SYR IVF SCH ×2 (09:04→21:07)
[2019-10-03 10:28] LABS: MEAN CORPUSCULAR HEMOGLOBIN 31.7 pg (27.5-34.5); MEAN CORPUSCULAR HGB CONC 32.4 g/dL (33.2-36.2); MEAN PLATELET VOLUME 10.7 fL (7.4-10.4); PLATELET COUNT 227 x10^3/uL (130-400); RED BLOOD COUNT 3.78 x10^6/uL (4.38-5.82); RED CELL DISTRIBUTION WIDTH 14.5 % (9.4-14.8)
[2019-10-03 10:50] LABS: BASOPHILS # (AUTO) 0.04 x10^3/uL (0-0.1); BASOPHILS % (AUTO) 0 % (0-1); EOSINOPHILS # (AUTO) 0.16 x10^3/uL (0-0.4); EOSINOPHILS % (AUTO) 1 % (1-7); LYMPHOCYTES # (AUTO) 1.36 x10^3/uL (1-3.4); LYMPHOCYTES % (AUTO) 8 % (22-44); MD SCAN; MONOCYTES # (AUTO) 0.13 x10^3/uL (0.2-0.8); MONOCYTES % (AUTO) 1 % (2-9); NEUTROPHILS # (AUTO) 14.58 x10^3/uL (1.8-6.8); NEUTROPHILS % (AUTO) 90 % (42-75)
[2019-10-03 14:30] VITALS: BP 143/84
[2019-10-03] MEDS: VANCOMYCIN 2,000 MG in SODIUM CHLORIDE 0.9% 500 ML IV SCH (16:12)
[2019-10-03 19:01] VITALS: BP 127/83
[2019-10-03] MEDS ORDERED: CATHFLO-ALTEPLASE 2 MG/2 ML CATHFLUSH ONE (23:00)
[2019-10-03] MEDS: DIPHENHYDRAMINE 25 MG CAPSULE PO PRN (23:47)
[2019-10-04 02:37] VITALS: BP 157/90
[2019-10-04] MEDS: AMPICILLIN/SULBACTAM 3 GM in SODIUM CHLORIDE 0.9% 100 ML IV SCH ×4 (03:03→21:55)
[2019-10-04] MEDS: HEPARIN 5,000 UNITS/ML, 1ML SQ SCH ×3 (05:11→21:55)
[2019-10-04 05:36] LABS: HCT (SEDRATE) 34.4 % (39.2-51.8); MEAN CORPUSCULAR HEMOGLOBIN 31.3 pg (27.5-34.5); MEAN CORPUSCULAR HGB CONC 32.2 g/dL (33.2-36.2); MEAN CORPUSCULAR VOLUME 97.1 fL (81-97); MEAN PLATELET VOLUME 11.4 fL (7.4-10.4); PLATELET COUNT 228 x10^3/uL (130-400); RED BLOOD COUNT 3.54 x10^6/uL (4.38-5.82)
[2019-10-04 05:45] LABS: CHLORIDE 105 mmol/L (98-107)
[2019-10-04 06:01] LABS: ALANINE AMINOTRANSFERASE 86 U/L (12-78); ALBUMIN 1.6 g/dL (3.4-5.0); ALKALINE PHOSPHATASE 84 U/L (45-117); ANION GAP 8 mmol/L (5-15); BILIRUBIN,TOTAL 0.3 mg/dL (0.2-1.0); CALCIUM 7.5 mg/dL (8.5-10.1); CREATININE 1.23 mg/dL (0.7-1.3); TOTAL PROTEIN 7.3 g/dL (6.4-8.2)
[2019-10-04 06:22] LABS: MD YES
[2019-10-04 06:26] LABS: BAND#(MANUAL) 0.41 x10^3/uL; BANDS%(MANUAL) 3 % (0-7); EOS#(MANUAL) 0.28 x10^3/uL (0.0-0.4); EOS% (MANUAL) 2 % (1-7); LYMPH#(MANUAL) 1.66 x10^3/uL (1-3.4); LYMPHS% (MANUAL) 12 % (22-44); MONOS#(MANUAL) 0.83 x10^3/uL (0.3-2.7); MONOS% (MANUAL) 6 % (2-9); MYELOCYTES# (MANUAL) 0.28 x10^3/uL (0-0); MYELOCYTES% (MANUAL) 2 % (0-0); SEG#(MANUAL) 10.35 x10^3/uL (1.8-6.8); SEGS% (MANUAL) 75 % (42-75)
[2019-10-04 06:27] LABS: ANISOCYTOSIS 1+
[2019-10-04 06:29] LABS: <PLATELET ESTIMATE> ADEQUATE; LARGE PLATELETS 1+; POLYCHROMASIA 1+
[2019-10-04 09:00] VITALS: BP 144/87
[2019-10-04] MEDS ORDERED: POTASSIUM CHLORIDE 20 MEQ TAB.ER.PRT PO ONE ×2 (09:00→11:00)
[2019-10-04] MEDS ORDERED: MAGNESIUM SULFATE PMX 2GM/50ML 50 ML IV ONE (09:00)
[2019-10-04] MEDS: AMLODIPINE 2.5 MG TABLET PO SCH (09:50)
[2019-10-04] MEDS: METHADONE 10 MG TABLET PO SCH ×2 (09:50→21:55)
[2019-10-04] MEDS: GUAIFENESIN ER 600 MG TABLET PO SCH ×2 (09:50→21:55)
[2019-10-04] MEDS: VANCOMYCIN 2,000 MG in SODIUM CHLORIDE 0.9% 500 ML IV SCH (10:39)
[2019-10-04] MEDS: SODIUM CHLORIDE FLUSH 10ML SYR IVF SCH ×2 (14:26→21:00)
[2019-10-04] MEDS ORDERED: DAPTOMYCIN 420 MG in SODIUM CHLORIDE 0.9% 100 ML IV SCH (18:30)
[2019-10-04 19:38] VITALS: BP 148/73
[2019-10-05 00:53] VITALS: BP 126/85
[2019-10-05] MEDS: AMPICILLIN/SULBACTAM 3 GM in SODIUM CHLORIDE 0.9% 100 ML IV SCH ×4 (03:31→21:51)
[2019-10-05] MEDS: DIPHENHYDRAMINE 25 MG CAPSULE PO PRN (03:34)
[2019-10-05] MEDS: HEPARIN 5,000 UNITS/ML, 1ML SQ SCH ×3 (05:58→21:51)
[2019-10-05 06:15] LABS: HCT (SEDRATE) 34.5 % (39.2-51.8)
[2019-10-05 07:45] VITALS: BP 149/88
[2019-10-05 08:29] LABS: ALANINE AMINOTRANSFERASE 82 U/L (12-78); ALBUMIN 1.8 g/dL (3.4-5.0); ANION GAP 7 mmol/L (5-15); CALCIUM 7.7 mg/dL (8.5-10.1); CHLORIDE 106 mmol/L (98-107)
[2019-10-05 08:32] LABS: ALKALINE PHOSPHATASE 81 U/L (45-117); BILIRUBIN,TOTAL 0.3 mg/dL (0.2-1.0); CREATININE 1.18 mg/dL (0.7-1.3)
[2019-10-05 08:47] LABS: BASOPHILS # (AUTO) 0.06 x10^3/uL (0-0.1); BASOPHILS % (AUTO) 1 % (0-1); EOSINOPHILS # (AUTO) 0.22 x10^3/uL (0-0.4); EOSINOPHILS % (AUTO) 2 % (1-7); LYMPHOCYTES # (AUTO) 1.58 x10^3/uL (1-3.4); LYMPHOCYTES % (AUTO) 15 % (22-44); MD SCAN; MEAN CORPUSCULAR HEMOGLOBIN 31.5 pg (27.5-34.5); MEAN CORPUSCULAR HGB CONC 32.4 g/dL (33.2-36.2); MEAN CORPUSCULAR VOLUME 97.2 fL (81-97); MEAN PLATELET VOLUME 11.9 fL (7.4-10.4); MONOCYTES # (AUTO) 0.53 x10^3/uL (0.2-0.8); MONOCYTES % (AUTO) 5 % (2-9); NEUTROPHILS # (AUTO) 8.38 x10^3/uL (1.8-6.8); NEUTROPHILS % (AUTO) 78 % (42-75); PLATELET COUNT 249 x10^3/uL (130-400); RED BLOOD COUNT 3.61 x10^6/uL (4.38-5.82); RED CELL DISTRIBUTION WIDTH 14.6 % (9.4-14.8)
[2019-10-05] MEDS: GUAIFENESIN ER 600 MG TABLET PO SCH ×2 (09:02→20:55)
[2019-10-05] MEDS: SODIUM CHLORIDE FLUSH 10ML SYR IVF SCH ×2 (09:02→20:55)
[2019-10-05] MEDS: AMLODIPINE 2.5 MG TABLET PO SCH (09:02)
[2019-10-05] MEDS: METHADONE 10 MG TABLET PO SCH ×2 (09:02→20:55)
[2019-10-05] MEDS ORDERED: LIDOCAINE 1%, 10ML ONE (09:47)
[2019-10-05 14:15] VITALS: BP 148/88
[2019-10-05 19:36] VITALS: BP 134/84
[2019-10-05] MEDS: DAPTOMYCIN 650 MG in SODIUM CHLORIDE 0.9% 100 ML IV SCH (20:55)
[2019-10-06 00:42] VITALS: BP 139/88
[2019-10-06] MEDS: AMPICILLIN/SULBACTAM 3 GM in SODIUM CHLORIDE 0.9% 100 ML IV SCH ×4 (02:56→21:49)
[2019-10-06] MEDS: HEPARIN 5,000 UNITS/ML, 1ML SQ SCH ×3 (05:12→22:46)
[2019-10-06 05:34] LABS: MEAN CORPUSCULAR HEMOGLOBIN 31.5 pg (27.5-34.5); MEAN CORPUSCULAR HGB CONC 32.3 g/dL (33.2-36.2); MEAN CORPUSCULAR VOLUME 97.4 fL (81-97); RED BLOOD COUNT 3.52 x10^6/uL (4.38-5.82)
[2019-10-06 05:43] LABS: ANION GAP 6 mmol/L (5-15); CHLORIDE 102 mmol/L (98-107)
[2019-10-06 05:48] LABS: ALANINE AMINOTRANSFERASE 76 U/L (12-78); ALKALINE PHOSPHATASE 81 U/L (45-117); BILIRUBIN,TOTAL 0.3 mg/dL (0.2-1.0); CREATININE 1.31 mg/dL (0.7-1.3); TOTAL PROTEIN 8.3 g/dL (6.4-8.2)
[2019-10-06 07:57] VITALS: BP 138/83
[2019-10-06 07:57] LABS: BASOPHILS % (AUTO) 1 % (0-1); EOSINOPHILS % (AUTO) 2 % (1-7); LYMPHOCYTES # (AUTO) 1.57 x10^3/uL (1-3.4); LYMPHOCYTES % (AUTO) 17 % (22-44); MD SCAN; MONOCYTES # (AUTO) 0.85 x10^3/uL (0.2-0.8); MONOCYTES % (AUTO) 9 % (2-9); NEUTROPHILS # (AUTO) 6.46 x10^3/uL (1.8-6.8); NEUTROPHILS % (AUTO) 70 % (42-75)
[2019-10-06 08:03] LABS: MEAN PLATELET VOLUME 10.9 fL (7.4-10.4); PLATELET COUNT 246 x10^3/uL (130-400)
[2019-10-06] MEDS: METHADONE 10 MG TABLET PO SCH ×2 (08:43→19:56)
[2019-10-06] MEDS: AMLODIPINE 2.5 MG TABLET PO SCH (08:43)
[2019-10-06] MEDS: GUAIFENESIN ER 600 MG TABLET PO SCH ×2 (08:43→19:57)
[2019-10-06] MEDS: SODIUM CHLORIDE FLUSH 10ML SYR IVF SCH ×2 (08:48→20:45)
[2019-10-06 14:55] VITALS: BP 135/91
[2019-10-06 20:00] VITALS: BP 120/80
[2019-10-06] MEDS: DAPTOMYCIN 650 MG in SODIUM CHLORIDE 0.9% 100 ML IV SCH (20:38)
[2019-10-06] MEDS: DIPHENHYDRAMINE 25 MG CAPSULE PO PRN (22:46)
[2019-10-07 02:35] VITALS: BP 123/81
[2019-10-07] MEDS: AMPICILLIN/SULBACTAM 3 GM in SODIUM CHLORIDE 0.9% 100 ML IV SCH ×4 (03:21→21:32)
[2019-10-07 06:27] VITALS: BP 110/59
[2019-10-07] MEDS: HEPARIN 5,000 UNITS/ML, 1ML SQ SCH ×3 (06:45→21:35)
[2019-10-07 07:12] LABS: BASOPHILS # (AUTO) 0.11 x10^3/uL (0-0.1); BASOPHILS % (AUTO) 1 % (0-1); EOSINOPHILS # (AUTO) 0.19 x10^3/uL (0-0.4); EOSINOPHILS % (AUTO) 2 % (1-7); LYMPHOCYTES % (AUTO) 17 % (22-44); MD NO; MEAN CORPUSCULAR HEMOGLOBIN 31.5 pg (27.5-34.5); MEAN CORPUSCULAR HGB CONC 32.5 g/dL (33.2-36.2); MEAN CORPUSCULAR VOLUME 97.1 fL (81-97); MEAN PLATELET VOLUME 11.1 fL (7.4-10.4); MONOCYTES # (AUTO) 0.77 x10^3/uL (0.2-0.8); MONOCYTES % (AUTO) 9 % (2-9); NEUTROPHILS # (AUTO) 6.16 x10^3/uL (1.8-6.8); NEUTROPHILS % (AUTO) 71 % (42-75); PLATELET COUNT 257 x10^3/uL (130-400); RED CELL DISTRIBUTION WIDTH 15.1 % (9.4-14.8)
[2019-10-07 07:26] LABS: ALANINE AMINOTRANSFERASE 64 U/L (12-78); ALBUMIN 1.9 g/dL (3.4-5.0); ANION GAP 6 mmol/L (5-15); CHLORIDE 104 mmol/L (98-107); CREATININE 1.34 mg/dL (0.7-1.3)
[2019-10-07 07:28] LABS: ALKALINE PHOSPHATASE 72 U/L (45-117); BILIRUBIN,TOTAL 0.3 mg/dL (0.2-1.0); TOTAL PROTEIN 8.4 g/dL (6.4-8.2)
[2019-10-07] MEDS: AMLODIPINE 2.5 MG TABLET PO SCH (10:08)
[2019-10-07] MEDS: SODIUM CHLORIDE FLUSH 10ML SYR IVF SCH ×2 (10:08→21:33)
[2019-10-07] MEDS: METHADONE 10 MG TABLET PO SCH (10:08)
[2019-10-07] MEDS: GUAIFENESIN ER 600 MG TABLET PO SCH ×2 (10:08→21:35)
[2019-10-07 12:20] VITALS: BP 128/83
[2019-10-07] MEDS: DAPTOMYCIN 650 MG in SODIUM CHLORIDE 0.9% 100 ML IV SCH (20:14)
[2019-10-07 20:26] VITALS: BP 133/84
[2019-10-07] MEDS: METHADONE 5 MG TABLET PO SCH (21:35)
[2019-10-08 02:50] VITALS: BP 112/67
[2019-10-08] MEDS: AMPICILLIN/SULBACTAM 3 GM in SODIUM CHLORIDE 0.9% 100 ML IV SCH ×3 (03:00→17:18)
[2019-10-08] MEDS: HEPARIN 5,000 UNITS/ML, 1ML SQ SCH ×2 (05:15→17:18)
[2019-10-08 06:08] LABS: ALANINE AMINOTRANSFERASE 57 U/L (12-78); ANION GAP 6 mmol/L (5-15); CALCIUM 8.1 mg/dL (8.5-10.1); CHLORIDE 104 mmol/L (98-107); CREATININE 1.33 mg/dL (0.7-1.3); MEAN CORPUSCULAR HEMOGLOBIN 31.8 pg (27.5-34.5); MEAN CORPUSCULAR HGB CONC 32.6 g/dL (33.2-36.2); MEAN CORPUSCULAR VOLUME 97.6 fL (81-97); RED BLOOD COUNT 3.37 x10^6/uL (4.38-5.82); RED CELL DISTRIBUTION WIDTH 14.9 % (9.4-14.8)
[2019-10-08 06:10] LABS: ALKALINE PHOSPHATASE 73 U/L (45-117); BILIRUBIN,TOTAL 0.2 mg/dL (0.2-1.0); TOTAL PROTEIN 8.6 g/dL (6.4-8.2)
[2019-10-08 06:54] LABS: BASOPHILS # (AUTO) 0.04 x10^3/uL (0-0.1); BASOPHILS % (AUTO) 0 % (0-1); EOSINOPHILS # (AUTO) 0.23 x10^3/uL (0-0.4); EOSINOPHILS % (AUTO) 3 % (1-7); LYMPHOCYTES # (AUTO) 1.86 x10^3/uL (1-3.4); LYMPHOCYTES % (AUTO) 22 % (22-44); MD SCAN; MEAN PLATELET VOLUME 11.9 fL (7.4-10.4); MONOCYTES # (AUTO) 0.77 x10^3/uL (0.2-0.8); MONOCYTES % (AUTO) 9 % (2-9); NEUTROPHILS # (AUTO) 5.51 x10^3/uL (1.8-6.8); NEUTROPHILS % (AUTO) 66 % (42-75); PLATELET COUNT 284 x10^3/uL (130-400)
[2019-10-08 07:51] VITALS: BP 134/82
[2019-10-08] MEDS: AMLODIPINE 2.5 MG TABLET PO SCH (09:14)
[2019-10-08] MEDS: GUAIFENESIN ER 600 MG TABLET PO SCH ×2 (09:14→21:35)
[2019-10-08] MEDS: METHADONE 5 MG TABLET PO SCH ×2 (09:14→21:35)
[2019-10-08] MEDS: SODIUM CHLORIDE FLUSH 10ML SYR IVF SCH ×2 (09:15→21:35)
[2019-10-08 14:00] VITALS: BP 132/68
[2019-10-08 19:08] VITALS: BP 144/84
[2019-10-08] MEDS: DAPTOMYCIN 650 MG in SODIUM CHLORIDE 0.9% 100 ML IV SCH (21:51)
[2019-10-09] MEDS: AMPICILLIN/SULBACTAM 3 GM in SODIUM CHLORIDE 0.9% 100 ML IV SCH ×4 (00:15→17:58)
[2019-10-09 00:56] VITALS: BP 118/67
[2019-10-09] MEDS: HEPARIN 5,000 UNITS/ML, 1ML SQ SCH ×3 (01:02→17:58)
[2019-10-09 07:44] VITALS: BP 126/78
[2019-10-09] MEDS: METHADONE 5 MG TABLET PO SCH ×2 (08:44→19:55)
[2019-10-09] MEDS: AMLODIPINE 2.5 MG TABLET PO SCH (08:44)
[2019-10-09] MEDS: SODIUM CHLORIDE FLUSH 10ML SYR IVF SCH ×2 (08:44→21:00)
[2019-10-09] MEDS: GUAIFENESIN ER 600 MG TABLET PO SCH ×2 (08:44→19:55)
[2019-10-09 13:06] VITALS: BP 106/68
[2019-10-09 13:12] LABS: BASOPHILS # (AUTO) 0.07 x10^3/uL (0-0.1); BASOPHILS % (AUTO) 1 % (0-1); EOSINOPHILS # (AUTO) 0.18 x10^3/uL (0-0.4); EOSINOPHILS % (AUTO) 2 % (1-7); LYMPHOCYTES # (AUTO) 1.48 x10^3/uL (1-3.4); LYMPHOCYTES % (AUTO) 18 % (22-44); MD NO; MEAN CORPUSCULAR HGB CONC 32.8 g/dL (33.2-36.2); MEAN CORPUSCULAR VOLUME 97.7 fL (81-97); MEAN PLATELET VOLUME 10.7 fL (7.4-10.4); MONOCYTES # (AUTO) 0.71 x10^3/uL (0.2-0.8); MONOCYTES % (AUTO) 9 % (2-9); NEUTROPHILS # (AUTO) 5.85 x10^3/uL (1.8-6.8); NEUTROPHILS % (AUTO) 71 % (42-75); PLATELET COUNT 301 x10^3/uL (130-400); RED BLOOD COUNT 3.58 x10^6/uL (4.38-5.82); RED CELL DISTRIBUTION WIDTH 15.3 % (9.4-14.8)
[2019-10-09 13:18] LABS: ANION GAP 5 mmol/L (5-15); CALCIUM 8.1 mg/dL (8.5-10.1); CHLORIDE 104 mmol/L (98-107); CREATININE 1.26 mg/dL (0.7-1.3)
[2019-10-09] MEDS: DAPTOMYCIN 650 MG in SODIUM CHLORIDE 0.9% 100 ML IV SCH (19:55)
[2019-10-09 20:30] VITALS: BP 154/89
[2019-10-10] MEDS: HEPARIN 5,000 UNITS/ML, 1ML SQ SCH ×3 (01:00→17:21)
[2019-10-10 02:16] VITALS: BP 125/81
[2019-10-10] MEDS: AMPICILLIN/SULBACTAM 3 GM in SODIUM CHLORIDE 0.9% 100 ML IV SCH ×4 (05:52→17:21)
[2019-10-10 08:00] VITALS: BP_SYST 114; BP_SYST 115; BP_DIAS 71; BP_DIAS 80
[2019-10-10] MEDS: METHADONE 5 MG TABLET PO SCH ×2 (08:34→20:14)
[2019-10-10] MEDS: AMLODIPINE 2.5 MG TABLET PO SCH (08:35)
[2019-10-10] MEDS: SODIUM CHLORIDE FLUSH 10ML SYR IVF SCH ×2 (08:35→20:18)
[2019-10-10] MEDS: GUAIFENESIN ER 600 MG TABLET PO SCH ×2 (08:35→20:14)
[2019-10-10 09:26] LABS: ANION GAP 5 mmol/L (5-15); BASOPHILS # (AUTO) 0.04 x10^3/uL (0-0.1); BASOPHILS % (AUTO) 1 % (0-1); CALCIUM 7.9 mg/dL (8.5-10.1); CHLORIDE 104 mmol/L (98-107); EOSINOPHILS # (AUTO) 0.14 x10^3/uL (0-0.4); EOSINOPHILS % (AUTO) 2 % (1-7); LYMPHOCYTES # (AUTO) 1.41 x10^3/uL (1-3.4); LYMPHOCYTES % (AUTO) 20 % (22-44); MD NO; MEAN CORPUSCULAR HGB CONC 32.5 g/dL (33.2-36.2); MEAN CORPUSCULAR VOLUME 98.5 fL (81-97); MEAN PLATELET VOLUME 10.6 fL (7.4-10.4); MONOCYTES # (AUTO) 0.73 x10^3/uL (0.2-0.8); MONOCYTES % (AUTO) 10 % (2-9); NEUTROPHILS # (AUTO) 4.81 x10^3/uL (1.8-6.8); NEUTROPHILS % (AUTO) 68 % (42-75); PLATELET COUNT 271 x10^3/uL (130-400); RED BLOOD COUNT 3.47 x10^6/uL (4.38-5.82); RED CELL DISTRIBUTION WIDTH 15.2 % (9.4-14.8)
[2019-10-10 14:00] VITALS: BP 105/74
[2019-10-10] MEDS: INSULIN LISPRO 100 UNITS/ML, PEN SQ-INSULIN SCH ×2 (16:00→20:23)
[2019-10-10 20:00] VITALS: BP 113/75
[2019-10-10] MEDS: DAPTOMYCIN 650 MG in SODIUM CHLORIDE 0.9% 100 ML IV SCH (20:14)
[2019-10-10 22:30] VITALS: BP 113/75
[2019-10-11] MEDS: HEPARIN 5,000 UNITS/ML, 1ML SQ SCH ×4 (00:17→17:33)
[2019-10-11] MEDS: AMPICILLIN/SULBACTAM 3 GM in SODIUM CHLORIDE 0.9% 100 ML IV SCH ×3 (00:18→21:35)
[2019-10-11 01:43] VITALS: BP 140/81
[2019-10-11 06:05] LABS: HCT (SEDRATE) 34.1 % (39.2-51.8)
[2019-10-11 06:09] LABS: BASOPHILS # (AUTO) 0.06 x10^3/uL (0-0.1); BASOPHILS % (AUTO) 1 % (0-1); EOSINOPHILS # (AUTO) 0.15 x10^3/uL (0-0.4); EOSINOPHILS % (AUTO) 2 % (1-7); LYMPHOCYTES # (AUTO) 1.73 x10^3/uL (1-3.4); LYMPHOCYTES % (AUTO) 27 % (22-44); MD NO; MEAN CORPUSCULAR HEMOGLOBIN 31.9 pg (27.5-34.5); MEAN CORPUSCULAR HGB CONC 32.6 g/dL (33.2-36.2); MEAN CORPUSCULAR VOLUME 97.7 fL (81-97); MONOCYTES # (AUTO) 0.62 x10^3/uL (0.2-0.8); MONOCYTES % (AUTO) 10 % (2-9); NEUTROPHILS % (AUTO) 60 % (42-75); PLATELET COUNT 286 x10^3/uL (130-400); RED BLOOD COUNT 3.52 x10^6/uL (4.38-5.82); RED CELL DISTRIBUTION WIDTH 15.5 % (9.4-14.8)
[2019-10-11 06:18] LABS: ALANINE AMINOTRANSFERASE 38 U/L (12-78); ALBUMIN 2.1 g/dL (3.4-5.0); ANION GAP 5 mmol/L (5-15); C-REACTIVE PROTEIN, QUANT 0.65 mg/dL (0.02-0.49); CHLORIDE 106 mmol/L (98-107); CREATININE 1.28 mg/dL (0.7-1.3)
[2019-10-11 06:21] LABS: ALKALINE PHOSPHATASE 68 U/L (45-117); BILIRUBIN,TOTAL 0.3 mg/dL (0.2-1.0); CREATINE KINASE, TOTAL 58 U/L (39-308); TOTAL PROTEIN 8.7 g/dL (6.4-8.2)
[2019-10-11 06:53] VITALS: BP 115/72
[2019-10-11] MEDS: INSULIN LISPRO 100 UNITS/ML, PEN SQ-INSULIN SCH ×4 (07:00→21:00)
[2019-10-11] MEDS: SODIUM CHLORIDE FLUSH 10ML SYR IVF SCH ×2 (09:00→20:47)
[2019-10-11] MEDS: GUAIFENESIN ER 600 MG TABLET PO SCH ×2 (09:41→20:47)
[2019-10-11] MEDS: AMLODIPINE 2.5 MG TABLET PO SCH (09:42)
[2019-10-11] MEDS: METHADONE 5 MG TABLET PO SCH ×2 (09:42→20:47)
[2019-10-11 12:44] VITALS: BP 153/77
[2019-10-11] MEDS: DAPTOMYCIN 650 MG in SODIUM CHLORIDE 0.9% 100 ML IV SCH (20:54)
[2019-10-12 00:58] VITALS: BP 128/82
[2019-10-12] MEDS: HEPARIN 5,000 UNITS/ML, 1ML SQ SCH ×3 (02:26→18:37)
[2019-10-12 02:54] LABS: BASOPHILS # (AUTO) 0.09 x10^3/uL (0-0.1); BASOPHILS % (AUTO) 1 % (0-1); EOSINOPHILS # (AUTO) 0.15 x10^3/uL (0-0.4); EOSINOPHILS % (AUTO) 2 % (1-7); LYMPHOCYTES # (AUTO) 1.73 x10^3/uL (1-3.4); LYMPHOCYTES % (AUTO) 25 % (22-44); MD NO; MEAN CORPUSCULAR HEMOGLOBIN 32.1 pg (27.5-34.5); MEAN CORPUSCULAR HGB CONC 32.7 g/dL (33.2-36.2); MEAN CORPUSCULAR VOLUME 98.1 fL (81-97); MEAN PLATELET VOLUME 10.9 fL (7.4-10.4); MONOCYTES # (AUTO) 0.61 x10^3/uL (0.2-0.8); MONOCYTES % (AUTO) 9 % (2-9); NEUTROPHILS # (AUTO) 4.31 x10^3/uL (1.8-6.8); NEUTROPHILS % (AUTO) 63 % (42-75); PLATELET COUNT 269 x10^3/uL (130-400); RED BLOOD COUNT 3.71 x10^6/uL (4.38-5.82); RED CELL DISTRIBUTION WIDTH 15.6 % (9.4-14.8)
[2019-10-12 03:06] LABS: ANION GAP 6 mmol/L (5-15); CALCIUM 8.3 mg/dL (8.5-10.1); CHLORIDE 105 mmol/L (98-107); CREATININE 1.32 mg/dL (0.7-1.3)
[2019-10-12] MEDS: AMPICILLIN/SULBACTAM 3 GM in SODIUM CHLORIDE 0.9% 100 ML IV SCH ×4 (04:05→21:46)
[2019-10-12] MEDS: INSULIN LISPRO 100 UNITS/ML, PEN SQ-INSULIN SCH ×4 (07:00→21:00)
[2019-10-12 08:50] VITALS: BP 134/79
[2019-10-12] MEDS: SODIUM CHLORIDE FLUSH 10ML SYR IVF SCH ×2 (09:00→20:38)
[2019-10-12] MEDS: GUAIFENESIN ER 600 MG TABLET PO SCH ×2 (09:29→20:40)
[2019-10-12] MEDS: AMLODIPINE 2.5 MG TABLET PO SCH (09:29)
[2019-10-12] MEDS: METHADONE 5 MG TABLET PO SCH ×2 (09:29→20:41)
[2019-10-12] MEDS ORDERED: SODIUM BICARB 7.5%, 50ML SYRINGE ONE (10:48)
[2019-10-12] MEDS ORDERED: EPINEPHRINE SYRINGE 0.1 MG/ML, 10ML ONE (10:48)
[2019-10-12] MEDS ORDERED: METH5TAB2 PO (13:50)
[2019-10-12] MEDS ORDERED: AMLO2.5T5 PO (13:50)
[2019-10-12 15:18] VITALS: BP 130/78
[2019-10-12] MEDS: DAPTOMYCIN 650 MG in SODIUM CHLORIDE 0.9% 100 ML IV SCH (20:16)
[2019-10-12 20:27] VITALS: BP 134/86
[2019-10-13 02:44] VITALS: BP 147/89
[2019-10-13] MEDS: HEPARIN 5,000 UNITS/ML, 1ML SQ SCH ×2 (03:22→10:30)
[2019-10-13] MEDS: AMPICILLIN/SULBACTAM 3 GM in SODIUM CHLORIDE 0.9% 100 ML IV SCH ×2 (03:23→09:41)
[2019-10-13] MEDS: INSULIN LISPRO 100 UNITS/ML, PEN SQ-INSULIN SCH ×2 (07:00→11:00)
[2019-10-13] MEDS: METHADONE 5 MG TABLET PO SCH (08:39)
[2019-10-13] MEDS: GUAIFENESIN ER 600 MG TABLET PO SCH (08:39)
[2019-10-13] MEDS: AMLODIPINE 2.5 MG TABLET PO SCH (08:39)
[2019-10-13] MEDS: SODIUM CHLORIDE FLUSH 10ML SYR IVF SCH (08:43)
[2019-10-13 08:50] VITALS: BP 137/87
== END 2019-10-13 12:00 | DRG 871 ==
LOC: ED 22:57 → EDIP 22:58 → ED 23:18 → 4NE 09-30 00:22 → 3N 10-08 14:25
PROVIDERS: ADMIT Internal Medicine; ATTEND Internal Medicine
PROC: 02HV33Z Insertion of Infusion Device into Superior Vena Cava, Percutaneous Approach (ICD-10-PCS; principal; 2019-09-30)
PROC: B5181ZA Fluoroscopy of Superior Vena Cava using Low Osmolar Contrast, Guidance (ICD-10-PCS; 2019-09-30)
PROC: B548ZZA Ultrasonography of Superior Vena Cava, Guidance (ICD-10-PCS; 2019-09-30)
PROC: 0H9DXZZ Drainage of Right Lower Arm Skin, External Approach (ICD-10-PCS; 2019-10-04)
PROC: 02HV33Z Insertion of Infusion Device into Superior Vena Cava, Percutaneous Approach (ICD-10-PCS; 2019-10-11)
PROC: B5181ZA Fluoroscopy of Superior Vena Cava using Low Osmolar Contrast, Guidance (ICD-10-PCS; 2019-10-11)
PROC: B548ZZA Ultrasonography of Superior Vena Cava, Guidance (ICD-10-PCS; 2019-10-11)
DX: A41.9 Sepsis, unspecified organism (principal); J15.4 Pneumonia due to other streptococci; N17.9 Acute kidney failure, unspecified; F11.23 Opioid dependence with withdrawal; L03.113 Cellulitis of right upper limb; L02.413 Cutaneous abscess of right upper limb; L02.414 Cutaneous abscess of left upper limb; R65.20 Severe sepsis without septic shock; B18.2 Chronic viral hepatitis C; D50.9 Iron deficiency anemia, unspecified; D53.9 Nutritional anemia, unspecified; E11.22 Type 2 diabetes mellitus with diabetic chronic kidney disease; E78.5 Hyperlipidemia, unspecified; F15.10 Other stimulant abuse, uncomplicated; F17.210 Nicotine dependence, cigarettes, uncomplicated; I12.9 Hypertensive chronic kidney disease with stage 1 through stage 4 chronic kidney disease, or unspecified chronic kidney disease; N18.2 Chronic kidney disease, stage 2 (mild); F14.10 Cocaine abuse, uncomplicated; M65.9 Synovitis and tenosynovitis, unspecified; J45.909 Unspecified asthma, uncomplicated; Z80.9 Family history of malignant neoplasm, unspecified
CPT/HCPCS: 10030; 36415; 73090; 84145; 87806; 96360; 99291; J3490; J7613; 36573; 71045; 76942; 80048; 80053; 80074; 80202; 80307; 81001; 82550; 82607; 82962; 83036; 83605; 83735; 84100; 85025; 85610; 85651; 85730; 86140; 86708; 87040; 87070; 87075; 87147; 87205; 87521; 87522; 87902; 93005; G0378; J0295; J0878; J1644; J2543; J2997; J3370; Q9967; C1751; G0475; J2270; J2930; J3475; J7030; J7040; Q0163

== ENCOUNTER 2020-03-06 15:06 | Emergency (ER) | payer SELFPAY ==
[~2020-03-06] VITALS: Ht 177.8 cm; Wt 92.8 kg
[~2020-03-06 15:06] MED LIST changes: +AMLO2.5T5 PO; +METH10TA2 PO; +METH5TAB2 PO
[2020-03-06 15:17] VITALS: BP 157/119
[2020-03-06] MEDS ORDERED: SODIUM CHLORIDE 0.9% 1,000ML IVBOLUS ONE (17:00)
== END 2020-03-06 16:19 | disposition left against medical advice (07) ==
LOC: ED 16:13
DX: L03.114 Cellulitis of left upper limb (principal); I10 Essential (primary) hypertension; E11.9 Type 2 diabetes mellitus without complications; M19.90 Unspecified osteoarthritis, unspecified site
CPT/HCPCS: 99281; 99283

== ENCOUNTER 2020-04-17 06:39 | Emergency (ER) | payer MEDICAID, OTHER ==
[~2020-04-17] VITALS: Ht 177.8 cm; Wt 94.9 kg
[2020-04-17 06:41] VITALS: BP 175/93
[2020-04-17] MEDS ORDERED: FLUORESCEIN/BENOXINATE 5 ML DROPS OP ONE (07:30)
[2020-04-17] MEDS ORDERED: FLUORESCEIN OPHTHALMIC 1 MG STRIP ONE (07:40)
--- NOTE | 2020-04-17 08:59 | NUR ---
FSBS = 56, NO CONCENTRATED SWEETS DIET TRAY ORDERED. OJ PROVIDED AT THIS TIME.
--- NOTE | 2020-04-17 09:04 | NUR ---
BED BUG FOUND ON GURNEY SHEET. ISSOLATION PRECAUTIONS PLACED AND FIBERGLASS BONDING MACHINE TENDER NOTIFIED
--- NOTE | 2020-04-17 09:35 | NUR ---
PT ATE 100% OF PROVIDED MEAL.
--- NOTE | 2020-04-17 09:44 | NUR ---
Patient/Caregiver given discharge instructions and they have confirmed that they understand the instructions. Patient ambulatory with steady gait.
== END 2020-04-17 09:45 | disposition home or self-care (01) ==
LOC: ED 08:15
DX: E11.649 Type 2 diabetes mellitus with hypoglycemia without coma (principal); H10.12 Acute atopic conjunctivitis, left eye; B00.1 Herpesviral vesicular dermatitis; F11.10 Opioid abuse, uncomplicated; F17.210 Nicotine dependence, cigarettes, uncomplicated; I10 Essential (primary) hypertension; M19.90 Unspecified osteoarthritis, unspecified site; Z72.9 Problem related to lifestyle, unspecified
CPT/HCPCS: 82962; 99283

== ENCOUNTER 2020-05-23 09:58 | Emergency (ER) | payer MEDICAID ==
[~2020-05-23] VITALS: Ht 177.8 cm; Wt 95.5 kg
--- NOTE | 2020-05-23 10:12 | NUR ---
DR. BYRD AT BEDSIDE. PT FEELS THAT HE HAS NO MEDICAL NEEDS AT THIS TIME. PT RESTING WITH NO COMPLAINTS. PILLOW PROVIDED FOR COMFORT.
[2020-05-23 11:00] VITALS: BP 112/68
--- NOTE | 2020-05-23 11:01 | NUR ---
Patient given discharge instructions and they have confirmed that they understand the instructions. Patient ambulatory with steady gait.
== END 2020-05-23 11:02 | disposition home or self-care (01) ==
LOC: ED 10:17
DX: F15.122 Other stimulant abuse with intoxication with perceptual disturbance (principal); F14.122 Cocaine abuse with intoxication with perceptual disturbance; E16.2 Hypoglycemia, unspecified; I10 Essential (primary) hypertension
CPT/HCPCS: 99283

== ENCOUNTER 2020-05-28 07:05 | Emergency (ER) | payer MEDICAID ==
[~2020-05-28] VITALS: Ht 177.8 cm; Wt 88.5 kg
[2020-05-28 07:53] VITALS: BP 158/99
== END 2020-05-28 08:27 | disposition home or self-care (01) ==
LOC: ED 08:17
DX: L03.115 Cellulitis of right lower limb (principal); I10 Essential (primary) hypertension
CPT/HCPCS: 99283